=== PATIENT | male | born 1960 | race Caucasian/White ===

== ENCOUNTER 2022-05-08 05:47 | Day surgery (SDC) | payer BC ==
[2022-05-04 09:00] VITALS: BMI 34.4
[2022-05-08] MEDS ORDERED: EPINEPHrine 1 MG/ML AMP ONE (06:25)
[2022-05-08] MEDS ORDERED: Bupivacaine PF 0.5% 30 ML VIAL ONE (06:25)
[2022-05-08] MEDS ORDERED: CEFAZOLIN 2 GM VIAL ONE (06:49)
[2022-05-08] MEDS ORDERED: SUGAMMADEX SODIUM 200 MG/2 ML VIAL ONE (07:09)
[2022-05-08] MEDS ORDERED: Fentanyl 100 MCG/2 ML VIAL ONE (07:10)
[2022-05-08] MEDS ORDERED: PROPOFOL 20 ML ONE (07:10)
[2022-05-08] MEDS ORDERED: Midazolam HCl 2 mg/2 ml Vial ONE (07:10)
[2022-05-08] MEDS ORDERED: Dexamethasone 4 mg/ml Vial ONE (07:59)
[2022-05-08] MEDS ORDERED: Ondansetron PF 4 MG/2 ML Vial ONE (07:59)
[2022-05-08] MEDS ORDERED: HYDROcodone/Acetaminophen 5/325 mg Tablet PO PRN (08:28)
[2022-05-08] MEDS ORDERED: Acetaminophen 325 MG TAB PO PRN (08:28)
== END 2022-05-08 09:10 | disposition home or self-care (01) ==
LOC: CSHSDC 05:47
PROVIDERS: ATTEND Surgery
PROC: 0JH60WZ Insertion of Totally Implantable Vascular Access Device into Chest Subcutaneous Tissue and Fascia, Open Approach (ICD-10-PCS; principal; 2022-05-08)
PROC: 0DH63UZ Insertion of Feeding Device into Stomach, Percutaneous Approach (ICD-10-PCS; principal; 2022-05-08)
DX: C02.9 Malignant neoplasm of tongue, unspecified (principal); I10 Essential (primary) hypertension; E11.9 Type 2 diabetes mellitus without complications; E78.5 Hyperlipidemia, unspecified; K21.9 Gastro-esophageal reflux disease without esophagitis; F17.200 Nicotine dependence, unspecified, uncomplicated; M10.9 Gout, unspecified; Z79.899 Other long term (current) drug therapy; Z79.84 Long term (current) use of oral hypoglycemic drugs
CPT/HCPCS: 71045; C1788; J0171; J1100; J1642; J2250; J2405; J2704; J3010; S0020

== ENCOUNTER 2022-09-27 13:46 | Outpatient (CLI) | payer BC ==
[2022-09-27] MEDS ORDERED: Iopamidol 300 61% 100 ML VIAL FS ONE (15:23)
[2022-09-27] MEDS ORDERED: Magnevist 469MG/ML 20 ML VIAL ONE (15:28)
== END 2022-09-27 13:47 | disposition home or self-care (01) ==
LOC: CSHCT 13:46
PROVIDERS: ATTEND Internal Medicine
DX: D70.8 Other neutropenia (principal); R41.3 Other amnesia; R55 Syncope and collapse; Z79.01 Long term (current) use of anticoagulants; C76.0 Malignant neoplasm of head, face and neck; Z92.3 Personal history of irradiation; C10.8 Malignant neoplasm of overlapping sites of oropharynx; Z92.21 Personal history of antineoplastic chemotherapy; R93.3 Abnormal findings on diagnostic imaging of other parts of digestive tract; J38.7 Other diseases of larynx
CPT/HCPCS: 70491; 70553; 82565; A9579; Q9967